=== PATIENT | male | born 1965 | race Caucasian/White ===

== ENCOUNTER → 2016-12-31 | Outpatient (REF) | payer OTHER | LOC: M LAB REF 16:15 | PROVIDERS: ATTEND Family Medicine | DX: M10.072 Idiopathic gout, left ankle and foot (principal) ==

== ENCOUNTER → 2017-11-10 | Outpatient (REF) | payer OTHER ==
[2017-11-10 13:43] LABS: URIC ACID 4.6 MG/DL (3.5-7.2)
== END ==
LOC: M LAB REF 13:10
DX: M10.072 Idiopathic gout, left ankle and foot (principal)

== ENCOUNTER → 2018-11-12 | Outpatient (REF) | payer OTHER | LOC: M LAB REF 12:13 | PROVIDERS: ATTEND Family Medicine | DX: M10.072 Idiopathic gout, left ankle and foot (principal) ==

== ENCOUNTER → 2018-12-13 | Outpatient (REF) | payer OTHER | LOC: M LAB REF 19:00 | PROVIDERS: ATTEND Otolaryngology | DX: R22.1 Localized swelling, mass and lump, neck (principal) ==

== ENCOUNTER → 2018-12-17 | Outpatient (CLI) | payer BC, OTHER ==
--- NOTE | 2018-12-17 15:52 | REP ---
CT of the soft tissue neck without contrast Indication: Localized swelling, mass and lump, neck. Comparison: None Technique: Axial CT of the soft tissue neck was performed. No intravenous contrast was administered. Coronal and sagittal soft tissue reformatted images were provided. Findings: Suboptimal evaluation secondary to lack of intravenous contrast. Streak artifact related to dental amalgam limits the evaluation of the oral cavity and oropharynx. Within these limitations, there cervical mass is identified. There is a 2.0 x 1.1 x 1.4 cm (TR, AP, CC) lobulated soft tissue density within the left parotid gland presumably representing a lymph node (image 23 of the axial series and 44 of the coronal series). The submandibular glands and thyroid gland are unremarkable. The nasopharynx, visualized oropharynx, hypopharynx and larynx are grossly unremarkable. There are no enlarged cervical lymph nodes by CT size criteria. Note is made of a retropharyngeal course of the right subclavian artery. There is moderate mucosal thickening of the right maxillary sinus and mild mucosal thickening of the left maxillary sinus. The mastoid air cells are clear bilaterally. There is rightward nasal septal deviation. The upper airway is patent. The lung apices are clear. No suspicious focal osseous lesion is identified. Impression: Within the limitation of a noncontrast enhanced CT examination, there is a 2 cm lobulated soft tissue density within the left parotid gland, presumably representing a lymph node. MRI can be performed for further evaluation if clinically indicated. Retropharyngeal course of the right subclavian artery. Moderate mucosal thickening of the maxillary sinuses. Electronically Signed by Alex Salazar MD 12/17/2018 03:44 P
== END ==
LOC: M RAD 15:19
PROVIDERS: ATTEND Otolaryngology
DX: R22.1 Localized swelling, mass and lump, neck (principal)

== ENCOUNTER → 2019-11-14 | Outpatient (REF) | payer OTHER ==
[~2019-11-14] MED LIST: ZYLO300T6
== END ==
LOC: M LAB REF 11:18
PROVIDERS: ATTEND Family Medicine
DX: M10.072 Idiopathic gout, left ankle and foot (principal); R22.1 Localized swelling, mass and lump, neck

== ENCOUNTER → 2020-02-01 | Outpatient (CLI) | payer OTHER | LOC: M LABSMTC 13:36 | PROVIDERS: ATTEND Anesthesiology | DX: Z01.812 Encounter for preprocedural laboratory examination (principal); Z20.828 Contact with and (suspected) exposure to other viral communicable diseases | CPT/HCPCS: C9803; U0003 ==

== ENCOUNTER 2020-02-06 07:42 | Day surgery (SDC) | payer BC, OTHER ==
[~2020-02-06] VITALS: Ht 188 cm; Wt 105.2 kg
[~2020-02-06 07:42] MED LIST changes: +NS 1,000 ML IV ONE
[2020-02-06] MEDS ORDERED: propofoL 200 MG/20 ML VIAL As Ordered ONE ×2 (08:39→08:40)
[2020-02-06] MEDS ORDERED: LIDOCAINE 2% 100MG/5ML SDV (FOR ANES.) As Ordered ONE (08:40)
--- NOTE | 2020-02-06 08:53 | ROOR ---
Patient Name: Toni Galvez Procedure Date: 02/06/2020 8:33 AM Date of : 1965 Age: 54 Room: [facility] Gender: Male Note Status: Finalized Procedure: Total Colonoscopy to Cecum Indications: Screening for colorectal malignant neoplasm Providers: Derrek Kline MD Referring MD: Og Mai MD Requesting Provider: Medicines: Monitored Anesthesia Care Complications: No immediate complications. Procedure: Pre-Anesthesia Assessment: - The heart rate, respiratory rate, oxygen saturations, blood pressure, adequacy of pulmonary ventilation, and response to care were monitored throughout the procedure. The Colonoscope was introduced through the anus and advanced to the cecum, identified by appendiceal orifice and ileocecal valve. The colonoscopy was performed without difficulty. The patient tolerated the procedure well. The quality of the bowel preparation was excellent. Findings: The perianal and digital rectal examinations were normal. Non-bleeding internal hemorrhoids were found during retroflexion. The hemorrhoids were small and Grade I (internal hemorrhoids that do not prolapse). Multiple small and large-mouthed diverticula were found in the recto-sigmoid colon, sigmoid colon and descending colon. The exam was otherwise without abnormality on direct and retroflexion views. Impression: - Non-bleeding internal hemorrhoids. - Diverticulosis in the recto-sigmoid colon, in the sigmoid colon and in the descending colon. - The examination was otherwise normal on direct and retroflexion views. - No specimens collected. - The exam was otherwise normal to the cecum. Recommendation: - Patient has a contact number available for emergencies. The signs and symptoms of potential delayed complications were discussed with the patient. Return to normal activities tomorrow. Written discharge instructions were provided to the patient. - High fiber diet. - Discharge patient to home. - Continue present medications. - Repeat colonoscopy in 10 years for screening purposes. - Return to referring physician. - The findings and recommendations were discussed with the patient. Derrek Kline MD Derrek Kline MD 02/06/2020 8:53:09 AM Electronically signed by Derrek Kline MD Number of Addenda: 0 Note Initiated On: 02/06/2020 8:33 AM Estimated Blood Loss: Estimated blood loss: none.
[2020-02-06 09:21] VITALS: BP 129/85
== END 2020-02-06 09:24 | disposition home or self-care (01) ==
LOC: M OPP 07:42
PROVIDERS: ATTEND Internal Medicine Gastroenterology
DX: Z12.11 Encounter for screening for malignant neoplasm of colon (principal); K57.30 Diverticulosis of large intestine without perforation or abscess without bleeding; K64.0 First degree hemorrhoids; Z79.899 Other long term (current) drug therapy

== ENCOUNTER → 2020-09-17 | Outpatient (CLI) | payer BC, OTHER ==
[~2020-09-17] MED LIST changes: -NS 1,000 ML IV ONE
--- NOTE | 2020-09-17 17:41 | REP ---
INDICATION: ATRAUMATIC PAIN COMPARISON: None TECHNIQUE: AP and lateral views FINDINGS: Small marginal osteophytes are seen along the articular surface of the patella superior and inferior poles. The compartments are symmetric and relatively well maintained. There is no gross fracture or destructive osseous lesions seen on this limited two view exam. IMPRESSION: Mild degenerative changes <Electronically signed by Jon Hearn > 09/17/20 [id number]
== END ==
LOC: M RAD 17:05
PROVIDERS: ATTEND Physician Assistant Medical
DX: M25.561 Pain in right knee (principal)

== ENCOUNTER → 2020-11-13 | Outpatient (REF) | payer BC, OTHER | LOC: M LAB REF 11:00 | PROVIDERS: ATTEND Family Medicine | DX: M10.072 Idiopathic gout, left ankle and foot (principal) ==

== ENCOUNTER → 2022-05-21 | Outpatient (REF) | payer OTHER | LOC: M LAB REF 11:02 | PROVIDERS: ATTEND Family Medicine | DX: M10.072 Idiopathic gout, left ankle and foot (principal) ==

== ENCOUNTER → 2023-06-04 | Outpatient (REF) | payer OTHER | LOC: M LAB REF 12:58 | PROVIDERS: ATTEND Family Medicine | DX: M10.9 Gout, unspecified (principal) ==

== ENCOUNTER → 2023-12-17 | Outpatient (CLI) | payer BC ==
[~2023-12-17] MED LIST changes: +ISOVUE-370 76% 100ML VIAL As Ordered ONE
== END ==
LOC: M RAD 15:53
PROVIDERS: ATTEND Family Medicine
DX: D37.030 Neoplasm of uncertain behavior of the parotid salivary glands (principal)
CPT/HCPCS: 70491; Q9967

== ENCOUNTER → 2024-01-12 | Outpatient (CLI) | payer BC ==
[~2024-01-12] MED LIST changes: -ISOVUE-370 76% 100ML VIAL As Ordered ONE; +LIDOCAINE 1% MDV 20ML VIAL As Ordered ONE
[2024-01-12 13:12] VITALS: TEMP 97.8
[2024-01-12 13:56] VITALS: BP 173/80; O2SAT 98
== END ==
LOC: M IRPRO 13:03
PROVIDERS: ATTEND Otolaryngology
DX: R22.1 Localized swelling, mass and lump, neck (principal)

== ENCOUNTER → 2024-05-18 | Outpatient (CLI) | payer BC ==
[~2024-05-18] MED LIST changes: -LIDOCAINE 1% MDV 20ML VIAL As Ordered ONE
== END ==
LOC: M ONCR 10:16
PROVIDERS: ATTEND General Practice
DX: C07 Malignant neoplasm of parotid gland (principal); Z90.49 Acquired absence of other specified parts of digestive tract; G51.8 Other disorders of facial nerve; Z80.52 Family history of malignant neoplasm of bladder; Z79.899 Other long term (current) drug therapy

== ENCOUNTER 2024-05-26 07:56 | Outpatient (RCR) | payer BC | END 2024-06-03 | LOC: M ONCR 07:56 | PROVIDERS: ATTEND General Practice | DX: Z51.0 Encounter for antineoplastic radiation therapy (principal); C07 Malignant neoplasm of parotid gland ==

== ENCOUNTER → 2024-07-04 | Outpatient (RCR) | payer BC ==
[~2024-07-04] MED LIST changes: +LIDO15SO8 PO
== END ==
LOC: M ONCR 06-08 09:03
PROVIDERS: ATTEND General Practice
DX: Z51.0 Encounter for antineoplastic radiation therapy (principal); C07 Malignant neoplasm of parotid gland

== ENCOUNTER 2024-07-22 09:02 | Outpatient (RCR) | payer BC | END 2024-08-03 | LOC: M ONCR 09:02 | PROVIDERS: ATTEND General Practice | DX: Z51.0 Encounter for antineoplastic radiation therapy (principal); C07 Malignant neoplasm of parotid gland ==

== ENCOUNTER → 2024-08-05 | Outpatient (CLI) | payer BC | LOC: M ONCR 09:09 | PROVIDERS: ATTEND General Practice | DX: C07 Malignant neoplasm of parotid gland (principal); L59.8 Other specified disorders of the skin and subcutaneous tissue related to radiation ==

== ENCOUNTER → 2024-10-25 | Outpatient (CLI) | payer BC | LOC: M ONCR 08:58 | PROVIDERS: ATTEND General Practice | DX: C07 Malignant neoplasm of parotid gland (principal); I89.0 Lymphedema, not elsewhere classified; R29.810 Facial weakness; Z79.899 Other long term (current) drug therapy; Z90.89 Acquired absence of other organs; Z92.3 Personal history of irradiation ==

== ENCOUNTER → 2025-01-26 | Outpatient (CLI) | payer BC ==
[2025-01-26 10:10] LABS: FREE T4 1.14 NG/DL (0.89-1.76)
== END ==
LOC: M ONCR 08:52
PROVIDERS: ATTEND General Practice
DX: C07 Malignant neoplasm of parotid gland (principal); Z79.899 Other long term (current) drug therapy; Z92.3 Personal history of irradiation; Z90.89 Acquired absence of other organs
CPT/HCPCS: 36415; 84439; 84443; G0463